=== PATIENT | male | born 1975 | race Caucasian/White ===

== ENCOUNTER 2016-12-16 22:32 | Emergency (ER) | payer BC, OTHER ==
[~2016-12-16] VITALS: Ht 167.6 cm; Wt 100.0 kg
[~2016-12-16 22:32] MED LIST: NOCURR
[2016-12-16] MEDS ORDERED: METF500T4 PO (22:40)
[2016-12-16 22:47] LABS: GLUCOSE,POINT OF CARE 355 MG/DL (70-110)
[2016-12-17] MEDS ORDERED: HYDROCODONE/ACETAMINOPHEN 5-325 MG TABLET PO ONE (00:15)
[2016-12-17] MEDS ORDERED: IBUPROFEN 600 MG TABLET PO ONE (00:15)
[2016-12-17 00:48] VITALS: BP 121/88
== END 2016-12-17 00:55 | disposition home or self-care (01) ==
LOC: EMS 22:34
DX: T23.002A Burn of unspecified degree of left hand, unspecified site, initial encounter (principal); E11.65 Type 2 diabetes mellitus with hyperglycemia; X30.XXXA Exposure to excessive natural heat, initial encounter; Y93.89 Activity, other specified; Y92.89 Other specified places as the place of occurrence of the external cause; Y99.8 Other external cause status
CPT/HCPCS: 82962; 99283

== ENCOUNTER 2016-12-23 23:49 | Emergency (ER) | payer OTHER ==
[~2016-12-23] VITALS: Ht 167.6 cm; Wt 101.8 kg
[~2016-12-23 23:49] MED LIST changes: +METF500T4 PO; -NOCURR
[2016-12-23 23:54] VITALS: BP 135/87
[2016-12-24 00:01] LABS: GLUCOSE,POINT OF CARE 341 MG/DL (70-110)
== END 2016-12-24 00:44 | disposition left against medical advice (07) ==
LOC: EMS 23:51
DX: R52 Pain, unspecified (principal); Z53.21 Procedure and treatment not carried out due to patient leaving prior to being seen by health care provider
CPT/HCPCS: 82962

== ENCOUNTER 2018-01-02 16:48 | Emergency (ER) | payer SELFPAY ==
[~2018-01-02] VITALS: Ht 167.6 cm; Wt 93.2 kg
[2018-01-02 17:08] LABS: GLUCOSE,POINT OF CARE 462 MG/DL (70-110)
[2018-01-02] MEDS ORDERED: IBUPROFEN 800 MG TABLET PO ONE (18:00)
[2018-01-02] MEDS ORDERED: PERTUSS(ACELL),DIPH,TET VAC/PF 0.5 ML VIAL IM ONE (18:00)
[2018-01-02] MEDS ORDERED: INSULIN REGULAR, HUMAN 100 UNITS/ML SQ ONE (18:00)
[2018-01-02] MEDS ORDERED: MetFORMIN HCL 500 MG TABLET PO ONE (18:00)
[2018-01-02 19:07] LABS: GLUCOSE,POINT OF CARE 453 MG/DL (70-110)
[2018-01-02 20:10] VITALS: BP 139/72
== END 2018-01-02 20:44 | disposition home or self-care (01) ==
LOC: EMS 16:49
DX: S92.351A Displaced fracture of fifth metatarsal bone, right foot, initial encounter for closed fracture (principal); E11.9 Type 2 diabetes mellitus without complications; X58.XXXA Exposure to other specified factors, initial encounter; Y93.89 Activity, other specified; Y92.89 Other specified places as the place of occurrence of the external cause; Y99.8 Other external cause status
CPT/HCPCS: 29125; 73130; 82962; 90471; 90715; 96372; 99284; J1815

== ENCOUNTER 2018-07-26 21:45 | Emergency (ER) | payer SELFPAY ==
[~2018-07-26] VITALS: Ht 157.5 cm; Wt 86.4 kg
[2018-07-26] MEDS ORDERED: METF-960 PO (22:38)
[2018-07-26] MEDS ORDERED: GLIM2 PO (22:38)
[2018-07-26] MEDS ORDERED: KETOROLAC TROMETHAMINE 60 MG/2 ML VIAL IM ONE (23:45)
[2018-07-27] MEDS ORDERED: ACETAMINOPHEN 325 MG TABLET PO ONE (01:45)
[2018-07-27 02:23] VITALS: BP 138/80
[2018-07-27 04:36] LABS: GLUCOSE,POINT OF CARE 211 MG/DL (70-110)
== END 2018-07-27 02:28 | disposition home or self-care (01) ==
LOC: EMS 21:46
DX: Z02.89 Encounter for other administrative examinations (principal); M94.0 Chondrocostal junction syndrome [Tietze]; E11.9 Type 2 diabetes mellitus without complications
CPT/HCPCS: 71045; 71101; 82962; 93005; 96372; 99284; J1885

== ENCOUNTER 2020-07-25 21:48 | Emergency (ER) | payer MEDICAID ==
[~2020-07-25] VITALS: Ht 167.6 cm; Wt 88.6 kg
[~2020-07-25 21:48] MED LIST changes: +GLIM2 PO; +METF-960 PO; -METF500T4 PO
[2020-07-25 22:14] VITALS: BP 142/98
[2020-07-25 22:16] LABS: GLUCOSE,POINT OF CARE 186 MG/DL (70-110)
== END 2020-07-26 00:02 | disposition left against medical advice (07) ==
LOC: EMS 21:48
DX: S60.446A External constriction of right little finger, initial encounter (principal); F17.210 Nicotine dependence, cigarettes, uncomplicated; E11.9 Type 2 diabetes mellitus without complications; F12.90 Cannabis use, unspecified, uncomplicated; W49.04XA Ring or other jewelry causing external constriction, initial encounter; Y93.89 Activity, other specified; Y92.89 Other specified places as the place of occurrence of the external cause; Y99.8 Other external cause status

== ENCOUNTER 2020-08-29 18:54 | Emergency (ER) | payer MEDICAID ==
[~2020-08-29] VITALS: Ht 167.6 cm; Wt 88.6 kg
[2020-08-29 18:59] VITALS: BP 161/112
[2020-08-29] MEDS ORDERED: ONDANSETRON HCL 4 MG/2 ML VIAL IVP ONE (19:15)
[2020-08-29] MEDS ORDERED: FentaNYL CITRATE-PF 100 MCG/2 ML VIAL IVP ONE (19:15)
[2020-08-29] MEDS ORDERED: KETAMINE HCL 50 MG/ML 10 ML VIAL IVP ONE (19:15)
[2020-08-29] MEDS ORDERED: PERTUSS(ACELL),DIPH,TET VAC/PF 0.5 ML VIAL IM ONE (19:15)
[2020-08-29] MEDS ORDERED: MORPHINE SULFATE 4 MG/ML SYRINGE IVP ONE (19:15)
[2020-08-29] MEDS ORDERED: SODIUM CHLORIDE 0.9% 1,000 ML IV ONE (19:15)
[2020-08-29 19:32] LABS: GLUCOSE,POINT OF CARE 234 MG/DL (70-110)
== END 2020-08-29 20:00 | disposition short-term general hospital (02) ==
LOC: EMS 18:56
DX: S31.33XA Puncture wound without foreign body of scrotum and testes, initial encounter (principal); E11.9 Type 2 diabetes mellitus without complications; F17.210 Nicotine dependence, cigarettes, uncomplicated; F12.90 Cannabis use, unspecified, uncomplicated; W34.00XA Accidental discharge from unspecified firearms or gun, initial encounter; Y93.01 Activity, walking, marching and hiking; Y92.512 Supermarket, store or market as the place of occurrence of the external cause; Y99.8 Other external cause status
CPT/HCPCS: 72170; 82962; 90471; 90715; 96361; 96372; 96374; 96375; 99291; J0690; J3010

== ENCOUNTER 2022-07-04 22:06 | Emergency (ER) | payer MEDICAID, OTHER ==
[~2022-07-04] VITALS: Ht 167.6 cm; Wt 90.9 kg
[2022-07-04 22:14] VITALS: BP 151/90
[2022-07-04 23:20] LABS: BASOPHILS % (AUTO) 1.1 % (0.0-2.0); EOSINOPHILS % (AUTO) 3.4 % (1.0-6.0); HEMATOCRIT 45.7 % (41-53); HEMOGLOBIN 15.3 g/dL (13.5-17.5); LYMPHOCYTES # (AUTO) 2.2 K/uL (1.0-4.8); MEAN CORPUSCULAR HEMOGLOBIN 27.4 pg (26.0-34.0); MEAN CORPUSCULAR HGB CONC 33.5 G/dL (31.0-37.0); MEAN CORPUSCULAR VOLUME 82 fL (80-100); MONOCYTES # (AUTO) 0.7 K/uL (0.1-1.0); MONOCYTES % (AUTO) 9.3 % (2.0-9.0); NEUTROPHILS % (AUTO) 55.2 % (40.0-70.0); PLATELET COUNT (AUTO) 172 K/uL (150-450); RED BLOOD CELL COUNT(AUTO) 5.58 MIL/uL (4.50-5.90); RED CELL DISTRIBUTION WIDTH 14.2 % (11.5-14.5)
[2022-07-05 01:29] LABS: ALANINE AMINOTRANSFERASE 94 U/L (12-78); ALBUMIN 4.4 g/dL (3.4-5.0); ALKALINE PHOSPHATASE 87 U/L (46-116); ANION GAP 7 mmol/L (8-16); ASPARTATE AMINOTRANSFERASE 64 U/L (15-37); BILIRUBIN,TOTAL 6.5 mg/dL (0.1-1.0); CALCIUM, TOTAL 9.7 mg/dL (8.8-10.5); CARBON DIOXIDE 29 mmol/L (22-29); CHLORIDE 100 mmol/L (98-107); GLUCOSE,RANDOM 161 mg/dL (70-110); LIPASE 86 U/L (73-393); POTASSIUM 3.9 mmol/L (3.5-5.1); SODIUM SERUM 136 mmol/L (136-145); TOTAL PROTEIN, SERUM 8.2 g/dL (6.4-8.2); UREA NITROGEN, BLOOD 17 mg/dL (7-18)
[2022-07-05 01:30] LABS: GLOMERULAR FILTR. RATE CALC > 60 mL/min (>60)
[2022-07-05] MEDS ORDERED: ACETAMINOPHEN 500 MG TABLET PO ONE (01:30)
[2022-07-05 02:06] LABS: APPEARANCE,URINE CLEAR (CLEAR); BILIRUBIN,URINE SMALL (NEGATIVE); GLUCOSE, URINE (UA) 300-500 mg/dL (NEGATIVE); LEUKOCYTE ESTERASE ,URINE NEGATIVE (NEGATIVE); NITRATE,URINE NEGATIVE (NEGATIVE); OCCULT BLOOD,URINE NEGATIVE (NEGATIVE); PH,URINE 5.5 (5.0-8.0); PROTEIN,URINE 30-70 mg/dL (NEGATIVE); SPECIFIC GRAVITIY, URINE 1.041 (1.003-1.030)
[2022-07-05] MEDS ORDERED: IOHEXOL 350 MG/ML 100 ML VIAL ONE (02:08)
[2022-07-05] MEDS ORDERED: SODIUM CHLORIDE 0.9% 100 ML ONE (02:08)
[2022-07-05 02:18] LABS: BACTERIA,URINE None Seen /HPF (None Seen); MUCUS,URINE Few LPF (None Seen); RBC,URINE 0-2 /HPF (0-2); SQUAMOUS EPITHELIAL CELL,UR Few /LPF (None Seen); WBC,URINE 0-2 /HPF (0-5)
== END 2022-07-05 03:17 | disposition left against medical advice (07) ==
LOC: EMS 22:07
DX: E80.6 Other disorders of bilirubin metabolism (principal); R10.31 Right lower quadrant pain; E11.9 Type 2 diabetes mellitus without complications; F10.20 Alcohol dependence, uncomplicated; F12.90 Cannabis use, unspecified, uncomplicated; F17.210 Nicotine dependence, cigarettes, uncomplicated
CPT/HCPCS: 99283; 80053; 81001; 83690; 85025; 36415; Q9967; J7050; 81003